=== PATIENT | female | born 1980 | race Caucasian/White ===

== ENCOUNTER 2020-10-05 12:29 | Emergency (ER) | payer OTHER, SELFPAY | END 2020-10-05 13:18 | disposition home or self-care (01) | LOC: BURERS 12:29 | DX: K43.9 Ventral hernia without obstruction or gangrene (principal); R19.7 Diarrhea, unspecified; F17.210 Nicotine dependence, cigarettes, uncomplicated | CPT/HCPCS: 99283 ==

== ENCOUNTER 2022-01-29 00:34 | Emergency (ER) | payer OTHER | END 2022-01-29 01:30 | disposition home or self-care (01) | LOC: BURERS 00:34 | DX: K52.9 Noninfective gastroenteritis and colitis, unspecified (principal); F14.10 Cocaine abuse, uncomplicated; F15.10 Other stimulant abuse, uncomplicated; F17.210 Nicotine dependence, cigarettes, uncomplicated | CPT/HCPCS: 99283 ==

== ENCOUNTER 2023-03-08 10:04 | Emergency (ER) | payer SELFPAY ==
[2023-03-08] MEDS ORDERED: Ibuprofen 800 MG TAB ONE (10:14)
[2023-03-08] MEDS ORDERED: Cephalexin 250 MG CAP ONE (10:14)
[2023-03-08] MEDS ORDERED: Sulfameth/Trimethoprim DS 800-160mg TAB ONE (10:14)
[2023-03-08] MEDS ORDERED: Lidocaine 1% PF 5 ML VIAL ONE (10:36)
== END 2023-03-08 11:30 | disposition home or self-care (01) ==
LOC: BURERS 10:04
DX: L02.611 Cutaneous abscess of right foot (principal); L03.115 Cellulitis of right lower limb; F17.210 Nicotine dependence, cigarettes, uncomplicated
CPT/HCPCS: 10060; 87070; 87077; 87186; 87205